=== PATIENT | female | born 1930 | race Caucasian/White ===

== ENCOUNTER → 2016-07-01 | Outpatient (CLI) | payer MEDICARE, BC ==
[~2016-07-01] MED LIST: AGGRENOX PO; ALTACE PO; ASPIRIN PO; ATENOLOL PO; ATROVENT 0.03%30 ML NS; AXID AR75 MG PO; CELEBREX PO; COUMADIN PO; DARVOCET-N 1001 TAB PO; DICLOFENAC; DICLOFENAC PO; DOXYCYCLINE PO; FLONASE16 GM; IPRATROPIUM0.2 MG/ML; KCL PO; LASIX PO; MOTION RELIEF25 MG PO; NORCO 5/325 TAB1 TAB PO; PREMARIN; TIAZAC; TIAZAC240 MG PO; ULTRAM PO; VOLTAREN75 MG PO; ZOFRAN PO; [UNRECOGNIZED DRUG - OTHER]
--- NOTE | ~2016-07-01 | CT4 ---
[facility] A Service of [facility] & [facility] RADIOLOGY TEXT RESULTS PATIENT: URIEL MURRAY LOCATION: [facility] : [birth year] UNIT #: [id number] AGE: [address]: ALIE RASMUSSEN APRN SEX: F ORDER DR: [id number] [address] [id number] O MR#: [id number] Acc #: [id number] NAME: URIEL MURRAY : 1930 SEX: F STUDY DATE/TIME: 07/01/2016 16:50 UNIT: [facility] ROOM: STUDY DESCRIPTION: CT Abd and Pelv Wo Cont Attending Physician: Alie Rasmussen Referring Physician: Alie Rasmussen Ordering Physician: Niko Sheffield Primary Care Physician: Willie Archibald M.D. MEDICAL IMAGING REPORT This report is preliminary unless electronic signature is present. EXAM CT abdomen and pelvis without contrast HISTORY Crampy abdominal pain with bowel urgency. Symptoms over the past month. TECHNIQUE This CT exam was performed with one or more of the following radiation dose reduction techniques: automatic exposure control, adjustment of mA and/or kV according to patient size, and iterative reconstruction. Axial images were obtained without contrast and compared to a previous scan from 06/11/09 FINDINGS Mild fibrotic changes are seen at the lung bases. There is a prominent lumbar scoliosis with advanced multilevel lumbar degenerative disk disease. The liver, spleen, and pancreas are normal in size. No evidence of hydronephrosis or kidney stones. No distended bowel loops are seen to suggest obstruction. The appendix is normal. Diverticulosis is noted in the sigmoid colon. There is subtle haziness in pericolonic fat around the low sigmoid and into the rectosigmoid junction that was not seen on the previous CT scan in 2009. The appearance does not suggest diverticulitis, but is more suggestive of colitis. Consider direct visualization endoscopically. IMPRESSION There is subtle haziness in pericolonic fat around the low sigmoid and upper rectum associated with diverticula. I favor colitis over diverticulitis, although the changes are subtle. Consider direct visualization with endoscopy. No evidence of an abscess in the pelvis. No evidence of a bowel obstruction. No significant upper abdominal findings [facility] A Service of [facility] & [facility] RADIOLOGY TEXT RESULTS PATIENT: URIEL MURRAY LOCATION: [facility] : [birth year] UNIT #: [id number] AGE: [address]: ALIE RASMUSSEN, [employer] SEX: F ORDER DR: are noted. The appendix is normal. Dictated by... Maged Gilbert M.D. THIS IS AN ELECTRONICALLY VERIFIED REPORT Maged Gilbert M.D. at 07/02/2016 10:03 AM SYLVIA/giuseppe TD: 07/02/2016 00:19 JOB #: [id number] MEDICAL IMAGING REPORT Page 1 of 1
== END | disposition home or self-care (01) ==
LOC: SCT 15:43 → CCAT 16:15
DX: R10.84 Generalized abdominal pain (principal); R19.7 Diarrhea, unspecified; R63.4 Abnormal weight loss; K57.30 Diverticulosis of large intestine without perforation or abscess without bleeding
CPT/HCPCS: 74176